=== PATIENT | male | born 1950 | race Caucasian/White ===

== ENCOUNTER 2024-06-18 10:08 | Day surgery (SDC) | payer MEDICARE, OTHER ==
[2024-06-15 15:59] VITALS: BMI 30.8
[~2024-06-18 10:08] MED LIST: LACTATED RINGERS 1,000 ML IV SCH
[2024-06-18 11:21] VITALS: RESP 16; TEMP 97
[2024-06-18] MEDS: IV FLUID CONTINUATION 1,000 ML IV ONE (11:21)
[2024-06-18] MEDS ORDERED: PROPOFOL 10 MG/ML 20 ML VIAL IV ONE (12:24)
[2024-06-18] MEDS ORDERED: LIDOCAINE 1% INJ 10MG/ML (20 ML MDV) ONE (12:24)
--- NOTE | 2024-06-18 12:47 | P.PCN ---
Date of Procedure: 06/18/24 Procedure(s) Performed: BRIEF HISTORY: Patient is a 74-year-old pleasant white male scheduled for an elective colonoscopy as a part of screening for colon cancer. PROCEDURE PERFORMED: Colonoscopy with snare polypectomy. PREOPERATIVE DIAGNOSIS: Screening for colon cancer. IV sedation per Anesthesia. PROCEDURE: After informed consent was obtained, the patient, was brought into the endoscopy unit. IV sedation was administered by Anesthesia under continuous monitoring. Digital rectal examination was normal. Initially the Olympus CF-160 flexible video colonoscope was then inserted in the rectum, gradually advanced into the cecum without any difficulty. Careful examination was performed as the scope was gradually being withdrawn. Ileocecal valve and the appendiceal orifice were visualized and appeared normal. Prep was excellent. Mucosa of the cecum, ascending colon appeared normal. The transverse colon there was a 1 cm polyp that was removed by snare polypectomy. The, transverse colon, normal. The descending colon there were 2 polyps measuring 5 mm in size removed by snare polypectomy. In the proximal sigmoid colon there was a 1 cm polyp removed by snare polypectomy. Rest of the descending colon, sigmoid colon, and rectum appeared normal. The distal rectum there were 3 small polyps identified measuring between 4 and 5 mm in size that were removed by cold snare polypectomy. Retroflexion was performed in the rectum and no lesions were seen. The patient tolerated the procedure well. IMPRESSION: 1 cm transverse colon polyp status post polypectomy 5 mm x 2 descending colon polyp status post polypectomy 1 cm sigmoid colon polyp status post polypectomy 4 mm x 2 and 5 mm distal rectal polyp status post snare polypectomy RECOMMENDATIONS: Findings of this examination were discussed with the patient as well as his family.. Is advised to follow with the biopsy results. If the biopsy reveals adenoma he can have repeat colonoscopy in 3 years.
[2024-06-18 13:18] VITALS: BP 135/74; PULSE 69
== END 2024-06-18 13:55 ==
LOC: ORWHC2ENDO 10:08
PROVIDERS: ATTEND Internal Medicine Gastroenterology
DX: Z12.11 Encounter for screening for malignant neoplasm of colon (principal); D12.3 Benign neoplasm of transverse colon; D12.5 Benign neoplasm of sigmoid colon; D12.4 Benign neoplasm of descending colon; D12.8 Benign neoplasm of rectum
CPT/HCPCS: 88305; 45385; J2003; J2704